=== PATIENT | male | born 1975 | race Caucasian/White ===

== ENCOUNTER → 2021-05-29 06:59 | Outpatient (CLI) | payer OTHER, SELFPAY ==
[2021-05-29 09:23] LABS: Thyroid Stimulating Hormone 1.86 uIU/mL (0.47-4.68)
== END ==
PROVIDERS: PCP Student in an Organized Health Care Education/Training Program; Referring Provider Student in an Organized Health Care Education/Training Program; Visit Provider Student in an Organized Health Care Education/Training Program
DX: Z85.850 Personal history of malignant neoplasm of thyroid (principal); E89.0 Postprocedural hypothyroidism
CPT/HCPCS: 36415; 84439; 84443

== ENCOUNTER → 2021-12-02 13:59 | Outpatient (CLI) | payer OTHER, SELFPAY ==
--- NOTE | 2021-12-02 | DI.US.S_ITS ---
PROCEDURE: US SOFT TISSUE HEAD AND NECK INDICATIONS: Personal history of malignant neoplasm of thyroid TECHNIQUE: Real-time scanning was performed of the thyroid bed and surrounding tissues, with image documentation. COMPARISON: None. FINDINGS: No residual thyroid tissue noted in the thyroid bed. No anterior cervical adenopathy noted. IMPRESSION: Unremarkable soft tissue neck ultrasound. No residual thyroid tissue noted. No abnormally sized cervical lymph nodes noted. Dictated by: Jaspreet Campos M.D. on 12/02/2021 at 16:10 Approved by: Jaspreet Campos M.D. on 12/02/2021 at 16:11
== END ==
PROVIDERS: PCP Student in an Organized Health Care Education/Training Program; Referring Provider Student in an Organized Health Care Education/Training Program; Visit Provider Student in an Organized Health Care Education/Training Program
DX: Z08 Encounter for follow-up examination after completed treatment for malignant neoplasm (principal); Z85.850 Personal history of malignant neoplasm of thyroid
CPT/HCPCS: 76536

== ENCOUNTER → 2022-08-27 06:59 | Outpatient (CLI) | payer OTHER, SELFPAY ==
--- NOTE | 2022-08-27 | DI.US.S_ITS ---
PROCEDURE: US ABDOMEN LIMITED INDICATIONS: RIGHT UPPER QUADRANT PAIN TECHNIQUE: Real-time focused scanning was performed of the abdomen, with image documentation. COMPARISON: None. FINDINGS: The liver is borderline in size at 17.4 cm and is diffusely increased in echogenicity. Hepatopetal flow is seen in the main portal vein. 4 mm nonmobile echogenic focus along the gallbladder wall is most likely a small polyp. No gallstones or gallbladder wall thickening. There is no pericholecystic fluid. Sonographic Mariscal sign is negative. No intrahepatic or extrahepatic biliary ductal dilatation. The common bile duct measures 4.9 mm in diameter. Pancreas is not well seen. No free fluid in the right upper quadrant. IMPRESSION: 1. Increased hepatic echogenicity is seen, most commonly secondary to diffuse hepatic steatosis but other sources of hepatocellular disease cannot be excluded. Recommend clinical correlation. 2. Small 4 mm gallbladder polyp does not require dedicated imaging follow-up based on its size. Approved by: Tomas Bustamante M.D. on 08/27/2022 at 9:41
== END ==
PROVIDERS: PCP Student in an Organized Health Care Education/Training Program; Referring Provider Internal Medicine; Visit Provider Internal Medicine
DX: K82.4 Cholesterolosis of gallbladder (principal); R10.11 Right upper quadrant pain
CPT/HCPCS: 76705

== ENCOUNTER → 2022-09-21 14:54 | Outpatient (CLI) | payer OTHER, SELFPAY ==
--- NOTE | 2022-09-21 16:18 | DIET.CONS ---
Dietary Consultation Note 46 y/o M present for NAFLD nutrition consult.? HX: thyroid cancer 5 yrs ago resulting in thyroidectomy. Pt believes NAFLD could be related. Has been decreasing levothyroxine medication slowly and has been at current level x3mo.? Pt reports having borderline high cholesterol. Has tried pure plant-based diet which did not help. Since ultrasound, has started red yeast rice supplement for cholesterol support. UBW: 185 lbs Wt hx: 205 lbs at ultrasound. Current wt: 198 lbs. Ht: 6?1? Diet recall: prior to ultrasound Take thyroid medication with few sips water. B: cereal (honey nut cherrios, granolas, grape nuts) with milk or almond milk and cut fruit (peaches) or berries (blueberries, strawberries) on top.? Work - will drink crystal light S: multivitamin, breakfast/granola bar ([facility]) OR trail mix packet. L: cafeteria - plant-based entree - tofu, impossible meat with side of potatoes or cauliflower or peppers.? S: (2-3) same as morning snack.? Home D: fish 1-2x/week (occasional chicken, steak, pork chop) with vegetable or salad S: crackers, cheezits, chips, [place]. Pt states he was likely overindulging in sweets after dinner for the past several months prior to ultrasound. Diet recall: post ultrasound B: same S: sometimes L: half an entree? S: sometimes (snack usually 1x per day, one or the other) D: same S: sometimes dessert ETOH: glass of wine or beer a couple times a week, currently no etoh intake per PCP reccs. 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 Gets from holidays, events, etc. Will bake occasionally (pies or crisp). Does not use agave as sweetener. Does not drink apple juice. Does not eat many condiments.? Youngest daughter is vegetarian so family eats mostly plant-forward. PA: trying 30 min/d. Doctor recc stopping alcohol and Tylenol.? Diagnosis: hepatic steatosis r/t excessive intake fructose and hx thyroidectomy aeb pt with dx NAFLD with associated pain sensations, pt s/p thyroid cancer x5y, diet recall shows intake free fructose throughout the day especially in evening snacks. Intervention: 1. Educated pt on the relationship between fructose and NAFLD. Recc being more mindful of fructose intake, limiting apples and pears, eliminating high fructose corn syrup and agave nectar as much as possible, limiting added sugar to no more than 25g/d.?Reinforced pts efforts at weight loss to support liver health. 2. Discussed the importance of increasing fiber to support cholesterol numbers, shawn with plant-forward diet. Provided pt with handout, ?non-drug ways to promote health by lowering cholesterol? from [facility]. Monitoring/Evaluations: recc repeat liver enzymes and US in 3mo to see if nutrition interventions and intentional weight loss are impacting NAFLD. Pt may consider milk thistle supplement if approved by PCP, some studies show improvement of liver enzymes with negligible. Electronically Signed by: Apple Mondragon 09/21/22 16:18 Clinical Dietitian [address] [address]
== END ==
PROVIDERS: Absent Provider Family Medicine; Family Provider Family Medicine; PCP Family Medicine; Referring Provider Family Medicine; Visit Provider Family Medicine
DX: K76.0 Fatty (change of) liver, not elsewhere classified (principal); Z71.3 Dietary counseling and surveillance
CPT/HCPCS: 97802

== ENCOUNTER → 2022-12-14 06:53 | Outpatient (CLI) | payer OTHER, SELFPAY ==
--- NOTE | 2022-12-14 | DI.US.S_ITS ---
PROCEDURE: US SOFT TISSUE HEAD AND NECK INDICATIONS: SURVEILLANCE. THYROIDECTOMY 5 YEARS AGO. H/O THYROID CANCER. TECHNIQUE: Real-time scanning was performed of the neck region of interest, with image documentation. COMPARISON: [facility], , US SOFT TISSUE HEAD AND NECK, 12/02/2021, 14:19. FINDINGS: Thyroidectomy changes are present. No recurrent abnormal tissue within the thyroid bed or inferior neck is identified. IMPRESSION: Stable interval exam demonstrating no evidence of recurrent or residual disease. Dictated by: Elizabeth Galarza M.D. on 12/14/2022 at 14:02 Approved by: Elizabeth Galarza M.D. on 12/14/2022 at 14:03
== END ==
PROVIDERS: Family Provider Family Medicine; PCP Family Medicine; Referring Provider Student in an Organized Health Care Education/Training Program; Visit Provider Student in an Organized Health Care Education/Training Program
DX: E89.0 Postprocedural hypothyroidism (principal); Z85.850 Personal history of malignant neoplasm of thyroid
CPT/HCPCS: 76536

== ENCOUNTER 2024-02-02 21:43 | Emergency (ER) | payer OTHER, SELFPAY ==
[2024-02-02 21:59] VITALS: BP 126/63; PULSE 58; RESP 16; TEMP 36.4; O2SAT 97; BMI 25.0
[2024-02-02 23:00] VITALS: BP 117/69; PULSE 66; RESP 18; TEMP 36.6; O2SAT 96
[2024-02-02 23:22] LABS: Bacteria Urine Moderate (10-30); Culture Indicated Urine Specimen Cultured; RBC Urine 30-100/HPF (0-5/HPF); Squamous Epithelial Cell Urine 0-1 /HPF (0-5/HPF); Urine Volume 10mL (spun); WBC Urine 1-5/HPF (0-5/HPF)
[2024-02-03 00:51] VITALS: BP 123/63; PULSE 50; RESP 16; O2SAT 96
[2024-02-03 02:20] LABS: Appearance Urine UA TURBID; Bilirubin Urine UA 1+ (NEGATIVE); Color Urine UA BROWN; Glucose Urine UA NEGATIVE (Negative); Ketones Urine UA TRACE (NEGATIVE); Leukocyte Esterase Urine UA NEGATIVE (NEGATIVE); Nitrite Urine UA NEGATIVE (Negative); Occult Blood Urine UA 3+ (Negative); Protein Urine UA 1+ (Negative); Specific Gravity Urine UA >=1.030 (1.000-1.035); pH Urine UA 5.5 (4.5-8.0)
[2024-02-03 02:22] LABS: Ictotest Urine Positive (Negative)
--- NOTE | 2024-02-03 03:01 | ED.MALEGU ---
HPI - Male Genitourinary General Chief complaint: Urogenital-Male Stated complaint: states blood in urine Time Seen by Provider: 02/03/24 02:12 Source: patient Mode of arrival: Ambulatory Limitations: no limitations History of Present Illness HPI Narrative: 48-year-old male with history of hypothyroidism who presents with complaint of painless hematuria. He denies dysuria urgency or frequency no back or flank pain, no pelvic pain. No testicular pain. No fevers or chills. No nausea or vomiting. No other GI symptoms other than some slightly loose smaller caliber stools lately. Patient has not had similar symptoms in the past. He has not anticoagulated. States levothyroxine as his only medication. He has had prior appendectomy and thyroidectomy. No prior surgeries. No tobacco, occasional alcohol, no recreational drugs. Related Data Previous Rx's Medication Instructions Recorded nitrofurantoin 100 mg PO Q12H 7 days #14 caps 02/03/24 monohydrate/macrocrystals 100 mg capsule (Macrobid) Allergies Allergy/AdvReac Type Severity Reaction Status Date / Time No Known Drug Allergies Allergy Verified 02/03/24 03:13 Review of Systems Review of Systems ROS Unobtainable: All systems reviewed & are unremarkable except as noted in HPI and below Patient History Social History Smoking Status: Never smoker Smoking Status: Never smoker alcohol intake frequency: a few times a week Alcohol type: beer and wine Substance Use Type: does not use Exam Narrative Exam Narrative: GENERAL: Alert and oriented x three, male in mild distress HEENT: Head normocephalic, atraumatic, EOMI, pupils reactive, face symmetric, moist mucous membranes NECK: Supple, full range of motion CARDIOVASCULAR: Regular rate and rhythm without murmurs, rubs or gallops. RESPIRATORY: Breath sounds equal bilaterally, no wheezes rales or rhonchi. ABDOMEN: Soft, nontender. Normoactive bowel sounds all 4 quadrants. No guarding or rebound, rigidity, no mass : No CVA tenderness EXTREMITIES: Normal range of motion, no clubbing or edema. Neurovascularly intact NEUROLOGICAL: Cranial nerves II through XII grossly intact. Moving all extremities SKIN: Warm, dry, no petechiae, no rashes or lesions. Initial Vital Signs Initial Vital Signs: Vital Signs Temperature 97.6 F 02/02/24 21:59 Pulse Rate 58 L 02/02/24 21:59 Respiratory Rate 16 02/02/24 21:59 Blood Pressure 126/63 02/02/24 21:59 Pulse Oximetry 97 02/02/24 21:59 Oxygen Delivery Method Room Air 02/02/24 21:59 Course Orders Ordered: ED Orders 02/02/24 22:09 Ictotest Urine Stat Urine Culture Stat Urine Microscopic Stat 02/03/24 02:01 Urinalysis Screen (Dip Only) Stat Discontinued Medications Nitrofurantoin Macrocrystals (Nitrofurantoin Er 100 Mg Capsule) 100 mg PO NOW ONE Stop: 02/03/24 03:10 Last Admin: 02/03/24 03:17 Dose: 100 mg Documented By: JOSE Ondansetron HCl (Ondansetron 4 Mg/2 Ml Inj) 4 mg IV NOW PRN PRN Reason: Nausea And Vomiting Ondansetron HCl (Ondansetron 4 Mg Odt) 4 mg SL NOW PRN PRN Reason: Nausea And Vomiting Vital Signs Vital signs: Vital Signs - 8 hr 02/02/24 21:59 02/02/24 23:00 02/03/24 00:51 Temperature 97.6 F 97.9 F Pulse Rate 58 L 66 50 L Respiratory Rate 16 18 16 Blood Pressure 126/63 117/69 123/63 Pulse Oximetry 97 96 96 Oxygen Delivery Method Room Air Room Air Room Air MDM - Male Genitourinary Lab Data Labs: Lab Results 02/02/24 Range/Units 22:09 Urine Color Brown Urine Appearance Turbid Urine pH 5.5 (4.5-8.0) Ur Specific [place] >=1.030 H (1.000-1.035) Urine Protein 1+ H (Negative) Urine Glucose (UA) Negative (Negative) g/dL Urine Ketones Trace H (NEGATIVE) Urine Occult Blood 3+ H (Negative) Urine Nitrate Negative (Negative) Urine Bilirubin 1+ H (NEGATIVE) Ur Bilirubin Confirm Positive H (Negative) Urine Urobilinogen 1.0 (0.2) E.U./dL Ur Leukocyte Esterase Negative (NEGATIVE) Urine RBC 30-100/hpf H (0-5/HPF) Urine WBC 1-5/hpf (0-5/HPF) Ur Squamous Epith Cells 0-1 /hpf (0-5/HPF) Urine Bacteria Moderate (10-30) H (None) Ur Culture Indicated? Specimen cultured Vol Urine Centrifuged 10ml (spun) MDM Narrative Medical decision making narrative: 39-year-old male with painless hematuria 3+ blood, 1+ bilirubin positive for bilirubin 3200 RBCs negative for leuks 1-5 white cells no squamous moderate bacteria patient's urine was sent for culture. Discussed with patient would treat for UTI despite no symptoms, needs follow up in 1-2 weeks to have his urine rechecked to make sure that hematuria has resolved. If it has not with no signs of infection then he needs to follow up with Urology for cystoscopy. Patient expresses understanding. Has primary care he can follow with. Patient is started on oral antibiotics, discussed return precautions. Discharge Plan Departure Patient Disposition: Home Clinical Impression: Hematuria, UTI (urinary tract infection) Instructions: DI for Hematuria Activity Restrictions/Additional Instructions: Your urine shows blood but also changes that can be consistent with infection. Take antibiotics until completed. Prescription sent to [facility] in [place]. You do need to follow-up and have recheck urinalysis to make sure there is no blood present including microscopically. If there is persistent blood without signs of infection you will need to follow up with Urology for cystoscopy. Your primary care physician can help with follow up. Please return for fevers new abdominal back or flank pain, any vomiting, if you are having inability or difficulty to urinate, new testicular pain or any other new or concerning changes. Prescriptions: New nitrofurantoin monohyd/m-cryst [Macrobid] 100 mg capsule 100 mg PO Q12H 7 Days Qty: 14 0RF Rx Instructions: must administer with a meal/food Referrals: Corby Hitchcock MD [Primary Care Provider] - Stand Alone Forms: Patient Portal/API
[2024-02-03] MEDS: NITROFURANTOIN ER 100 MG CAPSULE PO (03:17)
== END 2024-02-03 03:25 | disposition home or self-care (01) ==
PROVIDERS: Emergency Provider Emergency Medicine; Family Provider Family Medicine; PCP Family Medicine
DX: N39.0 Urinary tract infection, site not specified (principal); R31.9 Hematuria, unspecified
CPT/HCPCS: 81003; 81015; 87086; 99283

== ENCOUNTER → 2024-02-15 09:18 | Outpatient (CLI) | payer OTHER, SELFPAY ==
--- NOTE | 2024-02-15 09:19 | DI.US.S_ITS ---
PROCEDURE: US ABDOMEN LIMITED INDICATIONS: HERNIA OF ABDOMINAL WALL TECHNIQUE: Real-time focused scanning was performed of the abdomen, with image documentation. COMPARISON: [facility], , US ABDOMEN LIMITED, 08/27/2022, 7:10. FINDINGS: There is a poorly seen umbilical hernia present that measures 9 x 8 x 18 mm, and appears to contain fat. There is a hernia orifice of approximately 5 mm. Only minimal change can be seen with Valsalva maneuver. IMPRESSION: There is a small fat containing periumbilical hernia is seen. Surgical consultation is recommended. If clinically appropriate, a follow-up CT study with at least IV contrast may also be helpful for further evaluation. Dictated by: Tu Mcconnell M.D. on 02/15/2024 at 12:20 Approved by: Tu Mcconnell M.D. on 02/15/2024 at 12:21
== END ==
PROVIDERS: Family Provider Family Medicine; PCP Family Medicine; Referring Provider Family Medicine; Visit Provider Family Medicine
DX: K43.9 Ventral hernia without obstruction or gangrene (principal); K42.9 Umbilical hernia without obstruction or gangrene
CPT/HCPCS: 76705

== ENCOUNTER → 2024-06-02 07:59 | Outpatient (CLI) | payer OTHER, SELFPAY ==
[2024-06-02 08:40] LABS: Estimated Glomerular Filt Rate > 60 mL/min (>60)
== END ==
PROVIDERS: Family Provider Family Medicine; PCP Family Medicine; Referring Provider Radiology Diagnostic Radiology; Visit Provider Radiology Diagnostic Radiology
DX: R31.0 Gross hematuria (principal)
CPT/HCPCS: 82565

== ENCOUNTER → 2024-06-04 06:51 | Outpatient (CLI) | payer OTHER, SELFPAY ==
--- NOTE | 2024-06-04 06:52 | DI.CT.S_ITS ---
PROCEDURE: CT ABDOMEN PELVIS WO/W CON INDICATIONS: Gross hematuria TECHNIQUE: Optional 5 mm thick noncontrast images acquired from the diaphragm to the symphysis pubis. After the administration of intravenous contrast, 5 mm thick images acquired from the diaphragm to the symphysis pubis after a 10-minute delay. 2 mm thick coronal and sagittal reformats were then performed of the kidneys and ureters. For radiation dose reduction, the following was used: automated exposure control, adjustment of mA and/or kV according to patient size. COMPARISON: None. FINDINGS: Image quality: Diagnostic. Kidneys and Ureters: No renal or ureteral calculi. No evidence of hydronephrosis. No solid renal mass. No urothelial abnormality. Bladder: Bladder wall thickness is normal. No calcified bladder stones. OTHER: Lower chest: Unremarkable. Liver: Tiny hypodense lesion within segment 2 of the liver likely cysts versus hemangioma. No solid hepatic mass. Gallbladder: No radiopaque gallstones or wall thickening. Biliary ducts: No biliary dilation. Pancreas: No solid mass. No pancreatic duct dilatation or inflammatory change. Spleen: Size is within normal limits. Adrenal Glands: No adrenal nodules. Stomach and Bowel: Small large bowel appear normal in caliber without evidence of bowel obstruction. Appendix is not definitively visualized. Peritoneum: No abnormal intraperitoneal fluid. No free air. Ventral Wall: No hernia. Abdominal Nodes: No retroperitoneal or mesenteric adenopathy by size criteria. Vessels: Aorta and inferior vena cava are normal in size. PELVIS: Pelvic Organs: Moderate prostatomegaly. Pelvic Nodes: No enlarged lymph nodes. Miscellaneous: No inguinal hernias are seen. Bones: No aggressive osseous abnormality. IMPRESSION: 1. No urinary calculi. No solid renal mass or urothelial abnormality. 2. Moderate prostatomegaly. Dictated by: Bobby Will M.D. on 06/04/2024 at 8:58 Approved by: Bobby Will M.D. on 06/04/2024 at 9:40
== END ==
PROVIDERS: Family Provider Family Medicine; PCP Family Medicine; Referring Provider Urology; Visit Provider Urology
DX: R31.0 Gross hematuria (principal); N40.0 Benign prostatic hyperplasia without lower urinary tract symptoms
CPT/HCPCS: 74178; Q9967

== ENCOUNTER 2024-06-27 10:55 | Day surgery (SDC) | payer OTHER, SELFPAY ==
[2024-06-25 10:54] VITALS: BMI 25.9
[2024-06-27] VITALS (7 sets, daily range): BP systolic 103–117; BP diastolic 55–69; PULSE 59–96; RESP 12–18; TEMP 36.6–36.8; O2SAT 93–98; BMI 26.1
[2024-06-27] MEDS: LACTATED RINGERS 1,000 ML 42 ML IV (11:36)
[2024-06-27] MEDS: ACETAMINOPHEN 325 MG TABLET 975 MG PO (11:36)
--- NOTE | 2024-06-27 11:40 | P.HP_ITS ---
History of Present Illness History of Present Illness Date Patient Seen: 06/27/24 Time Patient Seen: 11:40 Chief complaint: Hernia Repair - Umbilical Narrative: 48M with a symptomatic reducible umbilical hernia here for elective repair. No interval change in health. [facility] Medical History Secondhand smoke exposure Gross hematuria History of kidney stones Hx of thyroid cancer History of asthma Hematuria Surgical History Hx of circumcision History of appendectomy H/O thyroidectomy Family History Mother Cancer Father Stroke Social History marital status: number of children: 2 household members: spouse and children lives independently: Yes occupational status: employed Smoking Status: Never smoker alcohol intake: current substance use type: does not use caffeine: No Type(s) of exercise: bicycling and running frequency: 3-4 times per week Meds Home Medications and Allergies Home Medications Medication Instructions Recorded Confirmed Type levothyroxine 137 mcg tablet 137 mcg PO DAILY 03/08/24 06/27/24 History multivitamin 1 tab PO DAILY 03/08/24 06/27/24 History red yeast rice 1 tab PO DAILY 03/08/24 06/27/24 History Allergies Allergy/AdvReac Type Severity Reaction Status Date / Time No Known Drug Allergies Allergy Verified 06/27/24 11:15 Exam Vital Signs (past 8 hours): - 06/27/24 11:17 Temperature 97.8 F Pulse Rate 59 L Respiratory Rate 18 Blood Pressure 117/62 Pulse Oximetry 96 Oxygen Delivery Method Room Air Oxygen Delivery Method Room Air Narrative Exam Narrative: General adult man alert oriented no acute distress Chest nonlabored respiration Extremities warm well perfused Assessment & Plan Assessment and plan (1) Umbilical hernia: Qualifiers: Obstruction and gangrene presence: without obstruction or gangrene Qualified Code(s): K42.9 - Umbilical hernia without obstruction or gangrene Status: Acute Assessment & Plan narrative: 48M with a symptomatic umbilical hernia here for elective open repair. Overview of the operation its risks benefits and alternatives once again discussed. He provides his informed consent to proceed. Time-Based Coding :: [TOTAL MINUTES] spent with patient and on the chart (including review of chart, obtaining history, exam, reviewing outside data, placing orders, documenting exam and treatment plan, and counseling patient) on [DATE].
[2024-06-27] MEDS: CEFAZOLIN 2 GM/100 ML PREMIX 100 ML IV (12:06)
--- NOTE | 2024-06-27 12:16 | SUR.OPER ---
Supine on padded OR bed, head on pillow, arms secured on padded arm boards at <90 degrees abduction, legs uncrossed, safety belt at thigh, tape over blanket over lower legs.
[2024-06-27] MEDS: BUPIVACAINE 0.25% (PF) VIAL 30 ML INJ (12:19)
[2024-06-27] MEDS: OXYCODONE IR 5 MG TABLET PO (13:32)
--- NOTE | 2024-06-27 18:10 | P.OP_ITS ---
Operative Date/Time/Diagnoses Date of procedure: 06/27/24 Time of procedure: 18:10 Pre-op diagnosis: Umbilical hernia 2 cm Post-op diagnosis: same Procedure & Clinicians Procedure: Open repair of umbilical hernia Same procedure as scheduled: Yes Indications: Symptomatic reducible umbilical hernia Surgeon: [facility] Medical Biller: Remigio Fernandez Anesthesia Type: General Operative Notes Findings: 2 cm fascial defect containing omentum Specimen(s): none sent Estimated Blood Loss (mL): 10 Procedure in detail: Patient was brought to the operating room placed supine on the table. Bilateral lower extremity compression devices were applied. General anesthesia was induced and they were intubated with an endotracheal tube. They received 2 g of Ancef prior to skin incision. They were prepped and draped in sterile fashion. A time-out was performed. A curvilinear incision was made inferior to the umbilicus. The subcutaneous tissues were divided. The umbilical hernia was identified and the hernia sac was dissected off the umbilical skin and circumferentially off of the fascia defect. The hernia sac was sharply opened and contained viable omentum. The omentum was reduced back into the abdomen. Using blunt dissection I carefully carefully freed the hernia sac from beneath the fascia defect in order to accomodate the mesh. The fascia defect was 2.0 cm in maximal diameter. A Bard Ventralex ST hernia patch 6 .4 cm was inserted beneath the fascia defect and above the peritoneum in a sublay position. The mesh was anchored in multiple locations using Ethibond suture to the fascia and the fascial defect was closed over the mesh. The umbilical skin was tacked to the subcutaneous tissues and then the remainder of the subcutaneous tissues were reapproximated using 3 0 Vicry,l skin closed with 4 0 Monocryl followed by the application of Dermabond and Steri-Strips. Sponge instrument count at the end of the operation was correct. Patient tolerated procedure well was extubated and transferred to postoperative care unit in stable condition. Complications: none Post-operative Condition: stable Disposition: same day surgery
== END 2024-06-27 13:50 | disposition home or self-care (01) ==
PROVIDERS: Family Provider Family Medicine; PCP Family Medicine; Referring Provider Surgery; Visit Provider Surgery
PROC: (CPT 49591; principal; 2024-06-27 12:15)
DX: K42.9 Umbilical hernia without obstruction or gangrene (principal)
CPT/HCPCS: 49591; C1781; J0330; J0690; J1100; J1885; J2405; J2704; J3010